=== PATIENT | male | born 1985 | race Caucasian/White ===

== ENCOUNTER 2017-01-31 18:46 | Observation (INO) | payer BC ==
--- NOTE | 2017-01-31 19:11 | Emergency Department Record ---
History of Present Illness - General Chief Complaint: Syncope Stated Complaint: SYNCOPE Time Seen by Provider: 01/31/17 19:00 Source: Patient Mode of Arrival: Wheelchair Limitations: No limitations - History of Present Illness Initial Comments: The patient is here due to feeling that his heart rate was fast at home and possibly passing out. He was taking a nap and got up and then felt like his heart was racing. He then called out to his that he felt his HR was fast, got up to walk to the bathroom and then became very lightheaded and fell, bumping his head on an object and passing out for 30 seconds. When he woke up he was quite lightheaded but denied any CP, SOB, JANESSA, or sweating. The symptoms did resolve in the car ride to the hospital and now he is feeling fine. He denies any CP, SOB, recent illnesses, head pain, neck pain, vomiting or diarrhea. The patient is not taking any new medicines and has no hx of similar issues. MD Complaint: [place] faint, Loss of consciousness Onset/Timin -: Minutes(s) Prodromal Symptoms: Heart racing, Palpitations Description of Event: Post-event confusion Duration of Episode: 1 -: Minutes(s) Injuries Sustained Associated with Event: Head Current Symptoms: None Context: Getting out of bed Treatments Prior to Arrival: None - [place] Coma Scale Eye Response: (4) Open spontaneously Motor Response: (6) Obeys commands Verbal Response: (5) Oriented [place] Total: 15 - Related Data Home Medications Medication Instructions Recorded Confirmed Last Taken Fexofenadine/Pseudoephedrine 1 each PO DAILY 01/31/17 01/31/17 01/31/17 [Laya-D 24 Hour Tablet] Lansoprazole [Prevacid] 15 mg PO DAILY 01/31/17 01/31/17 01/31/17 Allergies Allergy/AdvReac Type Severity Reaction Status Date / Time Sulfa (Sulfonamide Allergy RASH Verified 01/31/17 18:59 Antibiotics) Travel Screening - Travel/Exposure Within Last 30 Days Have you traveled within the last 30 days?: No - Travel/Exposure Within Last Year Have you traveled outside the [place] in the last year?: No - Additonal Travel Details Have you been exposed to anyone with a communicable illness?: No - Travel Symptoms Symptom Screening: None Review of Systems Constitutional: Denies: Chills, Fever Eyes: Denies: Eye discharge ENT: Denies: Congestion Respiratory: Denies: Cough, Dyspnea Past Medical History - SOCIAL HISTORY Smoking Status: Former smoker Alcohol Use: Rare Drug Use: None - RESPIRATORY Hx Respiratory Disorders: Yes Hx Asthma: Yes - CARDIOVASCULAR Hx Cardio Disorders: No - NEURO Hx Neuro Disorders: No - GI Hx GI Disorders: No - Hx Genitourinary Disorders: No - ENDOCRINE Hx Endocrine Disorders: No - MUSCULOSKELETAL Hx Musculoskeletal Disorders: No - PSYCH Hx Psych Problems: No - HEMATOLOGY/ONCOLOGY Hx Hematology/Oncology Disorders: No Family Medical History Any Significant Family History?: No Physical Exam - General General Appearance: Alert, Oriented x3, Cooperative, No acute distress - Head Head exam: Normocephalic. negative: Atraumatic, Normal inspection (There is a very minor abrasion to the R parietal scalp area. There is no swelling or tenderness.) - Eye Eye exam: Normal appearance, PERRL, EOMI - Neck Neck exam: Normal inspection, Full ROM. negative: Meningismus, Tenderness ( There is no Cspine tenderness.) - Respiratory Respiratory exam: Normal lung sounds bilaterally. negative: Respiratory distress - Cardiovascular Cardiovascular Exam: Regular rate, Normal rhythm, Normal heart sounds. negative : Diastolic murmur, Systolic murmur - GI/Abdominal GI/Abdominal exam: Soft, Normal bowel sounds. negative: Tenderness - Extremities Extremities exam: Normal inspection, Full ROM, Normal capillary refill. negative: Tenderness - Neurological Neurological exam: Alert, Normal gait. negative: Abnormal gait, Motor sensory deficit - Psychiatric Psychiatric exam: negative: Anxious, Depressed Course Vital Signs 01/31/17 18:51 Temperature 98.6 F Pulse Rate 79 Respiratory 16 Rate Blood Pressure 117/75 Pulse Ox 98 - Reevaluation(s) Reevaluation #1: The patient is doing very well at this time. He denies any symptoms or pain or lightheadedness. Due to the nature of his complaints I did recommend overnight hospital admission and the patient agrees. I then did discuss the case with Quin TERRY) and she accepts the admission. 01/31/17 20:19 Medical Decision Making - Data Complexity MDM Data: X-Ray Ordered and/or Reviewed, EKG Ordered and/or Reviewed - Lab Data Result diagrams: 01/31/17 18:51 01/31/17 18:51 - EKG Data -: EKG Interpreted by Me EKG: No Acute Changes, Normal EKG - Radiology Data Radiology results: Report reviewed (CXR: Neg) Disposition Disposition: Admit Clinical Impression: Syncope Qualifiers: Syncope type: unspecified Qualified Code(s): R55 - Syncope and collapse Disposition: Still a Patient at [facility] Decision to Admit: Admit from ER Decision to Admit Date: 01/31/17 Decision to Admit Time: 20:20 Accepting Physician: Alycia Time Discussed w/Accepting Physician: 20:21 Condition: (2) Stable Forms: Patient Portal Access Time of Disposition: 20:21
[2017-01-31 19:14] LABS: BASO % 0.5 % (0-6); EOS % 5.3 % (0-6); GRAN % 38.4 % (47-80); HEMATOCRIT 46.9 % (42.0-52.0); LYMPH % 46.5 % (16-45); MEAN CELL VOLUME 86.7 fl (81-97); MEAN CORPUSCULAR HEMOGLOBIN 29.6 pg (27-33); MEAN CORPUSCULAR HGB CONC 34.1 g/dl (32-36); MEAN PLATELET VOLUME 9.5 fl (7.4-10.4); MONO % 9.3 % (0-9); PLATELET COUNT 348 K/uL (130-400); RED BLOOD COUNT 5.41 M/uL (4.40-5.70); RED CELL DISTRIBUTION WIDTH 12.4 % (11.5-14.5)
[2017-01-31 19:26] LABS: ANION GAP 9.9 (7-16); BLOOD UREA NITROGEN 12 mg/dL (9-20); CARBON DIOXIDE 29.1 mmol/L (22-30); CREATINE PHOSPHOKINASE 93 U/L (55-170); CREATININE 1.1 mg/dL (0.66-1.25); EST GLOMERULAR FILTRATION RATE > 60 ml/min; GLUCOSE,RANDOM 75 mg/dL (70-110)
[2017-01-31 19:39] LABS: CKMB 0.4 ug/L (0-6)
[2017-01-31 20:09] LABS: TROPONIN I < 0.012 ng/mL (0.00-0.034)
[2017-02-01 01:02] LABS: CKMB 0.4 ug/L (0-6); TROPONIN I < 0.012 ng/mL (0.00-0.034)
--- NOTE | 2017-02-01 07:24 | History & Physical ---
History of Present Illness - Date of Service Date of Service for History & Physical: 02/01/17 - History of Present Illness Admitting Diagnosis: 1. Acute Syncope, R/O MS. History of Present Illness: 31yo male with CC of syncope. He has a history of asthma. Patient presented to the ED brought by his after having a syncopal episode. He was taking a nap and woke up quickly realizing he was running late to a baseball game. He got up and felt like his heart was racing. He went to the bathroom and and once he started urinating became very lightheaded and fell , bumping his head on an object and passing out for 30 seconds. His caught him and helped lowered him to the ground. He did not have any rhythmic convulsions and was unconscious for about 30 seconds. When he woke up he was quite lightheaded but denied any CP, SOB, JANESSA, or sweating. The symptoms did resolve in the car ride to the hospital. While in the ED, patient had EKG normal sinus rhythm without ST changes. He had a CXR negative for acute process. CBC and CMP were unremarkable. 1st set of CE returned wnl. patient was admitted for further monitoring following syncopal episode. 02/01/17- Patient states he is feeling well today. He denies any headache, chest pain, shortness of breath, weakness, confusion. He says this is the first time he has had a syncopal episode. no family history of sudden cardiac or other cardiac abnormalities. He states he has had some fast heart beats that are intermittent lasting 10 seconds over the past few months but they always seem to resolve. He does not take any medications aside from his ventolin inhaler. He exercises regularly several times a week and does not smoke. pcp: not established Travel Screening - Travel/Exposure Within Last 30 Days Have you traveled within the last 30 days?: No - Travel/Exposure Within Last Year Have you traveled outside the [place] in the last year?: No - Additonal Travel Details Have you been exposed to anyone with a communicable illness?: No - Travel Symptoms Symptom Screening: None Review of Systems Constitutional: Denies: Chills, Fever, Night sweats, Weakness Eyes: Denies: Eye discharge ENT: Denies: Congestion Respiratory: Denies: Cough, Dyspnea Cardiovascular: Reports: Syncope. Denies: Arrhythmia, Chest pain, Dyspnea on exertion, Edema, Murmurs, Palpitations, Paroxysmal nocturnal dyspnea Endocrine: Denies: Fatigue Gastrointestinal: Denies: Constipation, Diarrhea Genitourinary: Denies: Dysuria Musculoskeletal: Denies: Arthralgia, Back pain Skin: Denies: Bruising Neurological: Denies: Abnormal gait, Confusion, Headache, Numbness, Paresthesias , Seizure, Tremors, Vertigo, Weakness Psychiatric: Denies: Anxiety, Depression Hematological/Lymphatic: Denies: Blood Clots Past Medical History - SOCIAL HISTORY Smoking Status: Former smoker Alcohol Use: Occassional Drug Use: None - RESPIRATORY Hx Respiratory Disorders: Yes Hx Asthma: Yes - CARDIOVASCULAR Hx Cardio Disorders: No - NEURO Hx Neuro Disorders: No - GI Hx GI Disorders: No - Hx Genitourinary Disorders: No - ENDOCRINE Hx Endocrine Disorders: No - MUSCULOSKELETAL Hx Musculoskeletal Disorders: No - PSYCH Hx Psych Problems: No - HEMATOLOGY/ONCOLOGY Hx Hematology/Oncology Disorders: No Family Medical History Any Significant Family History?: No H&P Meds/Allergies - Allergies Allergies: Allergies Allergy/AdvReac Type Severity Reaction Status Date / Time Sulfa (Sulfonamide Allergy RASH Verified 01/31/17 18:59 Antibiotics) - Home Medications Home Medications Medication Instructions Recorded Confirmed Last Taken Fexofenadine/Pseudoephedrine 1 each PO DAILY 01/31/17 01/31/17 01/31/17 [Laya-D 24 Hour Tablet] Lansoprazole [Prevacid] 15 mg PO DAILY 01/31/17 01/31/17 01/31/17 - Active Medications Active Medications: Current Medications Non-Formulary Medication (Lansoprazole [Prevacid]) 15 mg PO DAILY LILI Physical Exam - Vital Signs Vital Signs: Vital Signs - Last 24 Hrs Temp Pulse Resp BP Pulse Ox 02/01/17 06:00 97.9 F 68 16 106/57 96 02/01/17 02:07 97.6 F 65 16 133/68 97 01/31/17 22:58 97.7 F 77 16 119/78 96 01/31/17 21:00 69 16 01/31/17 20:59 98.7 F 69 16 124/73 98 - General General Appearance: Alert, Oriented x3, Cooperative, No acute distress Limitations: No limitations - Head Head exam: Normocephalic. negative: Atraumatic, Normal inspection (There is a very minor abrasion to the R parietal scalp area. There is no swelling or tenderness.) - Eye Eye exam: Normal appearance, PERRL, EOMI - Neck Neck exam: Normal inspection, Full ROM. negative: Meningismus, Tenderness ( There is no Cspine tenderness.) - Respiratory Respiratory exam: Normal lung sounds bilaterally. negative: Accessory muscle use, Decreased breath sounds, Respiratory distress, Wheezes - Cardiovascular Cardiovascular Exam: Regular rate, Normal rhythm, Normal heart sounds. negative : Diastolic murmur, Systolic murmur - GI/Abdominal GI/Abdominal exam: Soft, Normal bowel sounds. negative: Tenderness - Extremities Extremities exam: Normal inspection, Full ROM, Normal capillary refill. negative: Tenderness - Neurological Neurological exam: Alert, Normal gait. negative: Abnormal gait, Motor sensory deficit - Psychiatric Psychiatric exam: negative: Anxious, Depressed Results - Labs Result Diagrams: 01/31/17 18:51 02/01/17 07:14 Labs Last 24 Hours: Laboratory Results - last 24 hr 01/31/17 23:30 CK-MB (CK-2) Cancelled - Imaging and Cardiology Chest x-ray Status: Report reviewed (no acute process ) VTE H&P Assessment - Risk for VTE Risk for VTE: No Risk Level: Very Low Risk Assessment Date: 02/01/17 Risk Assessment Time: 11:00 VTE Orders Placed or Will Be Placed: No VTE Reason for No Prophylaxis: Not Indicated Plan - Detailed Diagnosis and Plan (1) Syncope Current Visit: Yes Status: Acute Qualifiers: Syncope type: unspecified Qualified Code(s): R55 - Syncope and collapse Base Code: R55 - SYNCOPE AND COLLAPSE Comment: 02/01/17- Patient back to baseline. based on history suspect vasovagal etiology with syncope occurring while micturating with complete recovery back to baseline. EKG x2 shows no abnormalities suggesting arrythymia or ACS. cardiac monitoring wnl through the night. all three sets of CE returned within normal. CXR was negative for acute process. heart size wnl. Patient is asymptomatic at this time. -spent 10 minutes counseling on vasovagal syncope. -will get him set up [facility] outpatient holter monitor as he reports a few episodes of intermittent fast heart beat over the past few months. admits to drinknig a lot more coffee and not sleepign as much so likely these are PVC's occurring. -will plan to discharge home today. Gave him [facility] new patient packet. (2) DVT prophylaxis Current Visit: Yes Status: Acute Base Code: [id number] - Comment: 02/01/17- patient is very low risk with age -encouraged ambulation (3) Full code status Current Visit: Yes Status: Acute Base Code: Z78.9 - OTHER SPECIFIED HEALTH STATUS Comment: 02/01/17- patient is full code
[2017-02-01 07:34] LABS: ANION GAP 6.7 (7-16); BLOOD UREA NITROGEN 16 mg/dL (9-20); CARBON DIOXIDE 27.3 mmol/L (22-30); CREATININE 1.2 mg/dL (0.66-1.25); EST GLOMERULAR FILTRATION RATE > 60 ml/min; GLUCOSE,RANDOM 106 mg/dL (70-110)
[2017-02-01] MEDS ORDERED: PANTOPRAZOLE SODIUM 40 MG TABLET PO SCH (08:15)
--- NOTE | 2017-02-01 11:13 | Discharge Summary ---
Providers Discharge Summary Date: 02/01/17 Date of admission: 01/31/17 20:30 Expected Date of Discharge: 02/01/17 Attending physician: MALICK BERNAL Primary care physician: TORI VARGAS D.O. Physical Exam - Vital Signs Vital Signs: Vital Signs - Last 24 Hrs Temp Pulse Pulse Resp BP Pulse Ox 02/01/17 09:46 60 16 02/01/17 06:00 97.9 F 68 16 106/57 96 02/01/17 02:07 97.6 F 65 16 133/68 97 01/31/17 22:58 97.7 F 77 16 119/78 96 01/31/17 21:00 69 16 01/31/17 20:59 98.7 F 69 16 124/73 98 - General General Appearance: Alert, Oriented x3, Cooperative, No acute distress Limitations: No limitations - Head Head exam: Normocephalic. negative: Atraumatic, Normal inspection (There is a very minor abrasion to the R parietal scalp area. There is no swelling or tenderness.) - Eye Eye exam: Normal appearance, PERRL, EOMI - Neck Neck exam: Normal inspection, Full ROM. negative: Meningismus, Tenderness ( There is no Cspine tenderness.) - Respiratory Respiratory exam: Normal lung sounds bilaterally. negative: Accessory muscle use, Decreased breath sounds, Respiratory distress, Wheezes - Cardiovascular Cardiovascular Exam: Regular rate, Normal rhythm, Normal heart sounds. negative : Diastolic murmur, Systolic murmur - GI/Abdominal GI/Abdominal exam: Soft, Normal bowel sounds. negative: Tenderness - Extremities Extremities exam: Normal inspection, Full ROM, Normal capillary refill. negative: Tenderness - Neurological Neurological exam: Alert, Normal gait. negative: Abnormal gait, Motor sensory deficit - Psychiatric Psychiatric exam: negative: Anxious, Depressed Hospitalization - Hospitalization Admission Diagnosis: 1. Acute Syncope, R/O GA. - Problem List/Discharge Diagnosis (1) Syncope Current Visit: Yes Status: Acute Discharge Diagnosis: Syncope type: unspecified Qualified Code(s): R55 - Syncope and collapse Base Code: R55 - SYNCOPE AND COLLAPSE Comment: 02/01/17- Patient back to baseline. based on history suspect vasovagal etiology with syncope occurring while micturating with complete recovery back to baseline. EKG x2 shows no abnormalities suggesting arrythymia or ACS. cardiac monitoring wnl through the night. all three sets of CE returned within normal. CXR was negative for acute process. heart size wnl. Patient is asymptomatic at this time. -spent 10 minutes counseling on vasovagal syncope. -will get him set up [facility] outpatient holter monitor as he reports a few episodes of intermittent fast heart beat over the past few months. admits to drinknig a lot more coffee and not sleepign as much so likely these are PVC's occurring. -will plan to discharge home today. Gave him [facility] new patient packet. (2) DVT prophylaxis Current Visit: Yes Status: Acute Base Code: [id number] - Comment: 02/01/17- patient is very low risk with age -encouraged ambulation (3) Full code status Current Visit: Yes Status: Acute Base Code: Z78.9 - OTHER SPECIFIED HEALTH STATUS Comment: 02/01/17- patient is full code - Hospitalization Course Disposition: Home, Self-Care Hospital Course: 31yo male with CC of syncope. He has a history of asthma. Patient presented to the ED brought by his after having a syncopal episode. He was taking a nap and woke up quickly realizing he was running late to a baseball game. He got up and felt like his heart was racing. He went to the bathroom and and once he started urinating became very lightheaded and fell , bumping his head on an object and passing out for 30 seconds. His caught him and helped lowered him to the ground. He did not have any rhythmic convulsions and was unconscious for about 30 seconds. When he woke up he was quite lightheaded but denied any CP, SOB, JANESSA, or sweating. The symptoms did resolve in the car ride to the hospital. While in the ED, patient had EKG normal sinus rhythm without ST changes. He had a CXR negative for acute process. CBC and CMP were unremarkable. 1st set of CE returned wnl. patient was admitted for further monitoring following syncopal episode. 02/01/17- Patient states he is feeling well today. He denies any headache, chest pain, shortness of breath, weakness, confusion. He says this is the first time he has had a syncopal episode. no family history of sudden cardiac or other cardiac abnormalities. He states he has had some fast heart beats that are intermittent lasting 10 seconds over the past few months but they always seem to resolve. He does not take any medications aside from his ventolin inhaler. He exercises regularly several times a week and does not smoke. Abnormal Labs: Abnormal Lab Results 02/01/17 Range/Units 07:14 Anion Gap 6.7 L (7-16) Condition at Discharge: (2) Stable Discharge Medications - Discharge Medications Prescriptions: Albuterol Sulfate [Ventolin Hfa] 1 - 2 puff IH .EVERY 4-6 HOURS PRN #1 inhaler PRN Reason: Difficulty In Breathing Home Medications: Ambulatory Orders Fexofenadine/Pseudoephedrine [Laya-D 24 Hour Tablet] 1 each PO DAILY [Last Taken 01/31/17] Lansoprazole [Prevacid] 15 mg PO DAILY 01/31/17 [Last Taken 01/31/17] Albuterol Sulfate [Ventolin Hfa] 1 - 2 puff IH .EVERY 4-6 HOURS PRN #1 inhaler 02/01/17 [Last Taken Unknown] Discharge Plan - Discharge Instructions Activity at Discharge: Resume Usual Activities As Tolerated Diet at Discharge: Regular Diet Additional Instructions: Return to usual activities as tolerating Holter monitor will be placed prior to discharge Please be sure to make a follow up appointment with a primary care provider and to call with any questions Return to ED for any new or worsening symptoms
--- NOTE | 2017-02-02 10:50 | RADIOLOGY REPORT ---
EXAM: CHEST AP or PA ONLY HISTORY: PATIENT COMPLAINS OF INCREASED HEART RATE AND PALPITATIONS. TECHNIQUE: AP portable view of the chest is provided without comparison examinations. FINDINGS: Cardiomediastinal silhouette is within normal limits for size and contour. Sherry appear unremarkable. There is no radiographic evidence of a focal infiltrate, pleural effusion, or pneumothorax. IMPRESSION: NO RADIOGRAPHIC EVIDENCE OF AN ACUTE INTRATHORACIC PROCESS. JOB NUMBER: [id number] MTDD
--- NOTE | 2017-02-07 16:08 | Holter Monitor Report ---
DATE OF TEST: 02/07/17 Mr. Jerez is 31 years old wearing a 24-hour Holter monitor on 02/01/2017 for syncope. There were a total of 109,935 heart beats were recorded. The average heart rate was 77 beats per minute and sinus rhythm. The minimum was 49 beats per minute and the maximum was 125 beats per minute. There were no significant pauses recorded. There was no ventricular or atrial arrhythmia. FINAL IMPRESSION: NORMAL HOLTER MONITOR. JOB NUMBER: [id number] MTDD
== END 2017-02-01 12:51 | disposition home or self-care (01) ==
LOC: ER 18:46 → MEDSURG 20:30
PROVIDERS: ADMIT Family Medicine; ATTEND Family Medicine
DX: R55 Syncope and collapse (principal); J45.909 Unspecified asthma, uncomplicated
CPT/HCPCS: 99285 ×2; 82550; 85025; 82553 ×2; 84484 ×2; 80048 ×2; 71010; 93005 ×2; 93225; 93226; 93010 ×2; G0378 ×2; 99219; 99223

== ENCOUNTER 2017-07-21 02:12 | Emergency (ER) | payer BC ==
--- NOTE | 2017-07-21 02:29 | Emergency Department Record ---
History of Present Illness - General Chief complaint: Pain Stated complaint: HAND INJURY Time Seen by Provider: 07/21/17 02:24 Source: Patient Mode of Arrival: Ambulatory Limitations: No limitations - History of Present Illness Initial comments: 32 yo male presents to ED for evaluation of right hand injury after punching a cabinet this morning. Patient reports immediate swelling and pain symptoms over the MCP/Phalangeal joints of the right hand. Patient reports that he is still able to flex/extend the fingers, but is limited by swelling/pain. Patient denies other injury on examination. Patient denies health problems at his baseline. Patient denies fight-bite injury on examination. Patient did take Aleve prior to arrival. MD Complaint: Extremity pain Onset/Timin -: Minutes(s) Location: Right, Hand Severity scale (1-10): 3 Quality: Aching Consistency: Constant Improves with: Nothing Worsens with: Palpation Associated Symptoms: Denies other symptoms - Related Data Previous Rx's Medication Instructions Recorded Albuterol Sulfate [Ventolin Hfa] 1 - 2 puff IH .EVERY 4-6 HOURS PRN 02/01/17 #1 inhaler Allergies Allergy/AdvReac Type Severity Reaction Status Date / Time Sulfa (Sulfonamide Allergy RASH Verified 01/31/17 18:59 Antibiotics) Travel Screening - Travel/Exposure Within Last 30 Days Have you traveled within the last 30 days?: No - Travel Symptoms Symptom Screening: None Review of Systems Constitutional: Denies: Chills, Fever, Malaise Eyes: Denies: Eye discharge, Eye pain ENT: Denies: Congestion, Ear pain, Epistaxis Respiratory: Denies: Cough, Dyspnea Cardiovascular: Denies: Chest pain, Dyspnea on exertion Endocrine: Denies: Fatigue, Heat or cold intolerance Gastrointestinal: Denies: Abdominal pain, Nausea, Vomiting Genitourinary: Denies: Incontinence, Retention Musculoskeletal: Reports: Arthralgia, Joint swelling. Denies: Back pain, Gout Skin: Reports: Bruising Neurological: Denies: Abnormal gait, Confusion, Headache, Seizure Psychiatric: Denies: Anxiety Hematological/Lymphatic: Denies: Anemia, Blood Clots Past Medical History - SOCIAL HISTORY Smoking Status: Current some day smoker - RESPIRATORY Hx Respiratory Disorders: Yes Hx Asthma: Yes - CARDIOVASCULAR Hx Cardio Disorders: No - NEURO Hx Neuro Disorders: No - GI Hx GI Disorders: No - Hx Genitourinary Disorders: No - ENDOCRINE Hx Endocrine Disorders: No - MUSCULOSKELETAL Hx Musculoskeletal Disorders: No - PSYCH Hx Psych Problems: No - HEMATOLOGY/ONCOLOGY Hx Hematology/Oncology Disorders: No Family Medical History Any Significant Family History?: Yes Family Hx Comment (NOT TO BE USED IN PLACE OF ITEMS BELOW): Grandmother has brain tumor-not cancer Hx Cancer: Grandparents Physical Exam - General General Appearance: Alert, Oriented x3, Cooperative, Mild distress Limitations: No limitations - Head Head exam: Atraumatic, Normocephalic, Normal inspection Head exam detail: negative: Abrasion, Contusion, Palacios's sign, General tenderness, Hematoma, Laceration - Eye Eye exam: Normal appearance. negative: Conjunctival injection, Periorbital swelling, Periorbital tenderness, Scleral icterus - ENT Ear exam: negative: Auricular hematoma, Auricular trauma Nasal Exam: negative: Active bleeding, Discharge, Dried blood, Foreign body Mouth exam: negative: Drooling, Laceration, Muffled voice, Tongue elevation - Neck Neck exam: Normal inspection. negative: Meningismus, Tenderness - Respiratory Respiratory exam: Normal lung sounds bilaterally. negative: Rales, Respiratory distress, Rhonchi, Stridor - Cardiovascular Cardiovascular Exam: Regular rate, Normal rhythm, Normal heart sounds Peripheral Pulses: 3+: Radial (R) - GI/Abdominal GI/Abdominal exam: Soft. negative: Rebound, Rigid, Tenderness - Rectal Rectal exam: Deferred - exam: Deferred - Extremities Extremities exam: Tenderness, Other (STS and abrasions over the MCP/phalangeal joints of the right hand, ROM intact but limited by STS.). negative: Calf tenderness, Pedal edema - Back Back exam: Denies: CVA tenderness (R), CVA tenderness (L) - Neurological Neurological exam: Alert, Normal gait, Oriented X3 - Psychiatric Psychiatric exam: Normal affect, Normal mood - Skin Skin exam: Abrasion, Normal color Type of lesion: abrasion Distribution of rash: RUE, LUE Course Vital Signs 07/21/17 02:17 Temperature 98.1 F Pulse Rate [ 97 H Pulse Ox Probe] Respiratory 20 Rate Blood Pressure 139/95 [Left Arm] Pulse Ox 98 - Reevaluation(s) Reevaluation #1: 07/21/17 02:36 Right Hand: Negative for fracture Patient was updated on radiology results, and appears stable for discharge with continued symptomatic care at home. Disposition Disposition: Discharge Clinical Impression: Contusion of hand, right Qualifiers: Encounter type: initial encounter Qualified Code(s): S60.221A - Contusion of right hand, initial encounter Disposition: Home, Self-Care Condition: (2) Stable Instructions: Contusion in Adults (ED) Additional Instructions: Return to ED if your symptoms worsen or if you have any concerns. Ice/Ibuprofen as needed for pain symptoms. Follow-up with your family doctor in 1 week as directed. Forms: Patient Portal Access Time of Disposition: 02:29 Quality - Quality Measures Quality Measures: N/A - Blood Pressure Screening Does Patient Have Any of the Following: No Blood Pressure Classification: Hypertensive Reading Systolic Measurement: 139 Diastolic Measurement: 95 Screening for High Blood Pressure: < First Hypertensive BP, F/U Documented > [ G8950] First Hypertensive Follow-up Interventions: Referral to alternative/primary care provider.
--- NOTE | 2017-07-21 20:44 | RADIOLOGY REPORT ---
EXAM: HAND, RIGHT 3 VIEWS HISTORY: INJURY PUNCHING A DOOR. TECHNIQUE: Three views. COMPARISON: None. ENCOUNTER: Initial. FINDINGS: No bone or joint abnormality identified. No fracture seen. IMPRESSION: UNREMARKABLE RIGHT HAND. JOB NUMBER: [id number] MTDD
== END 2017-07-21 02:52 | disposition home or self-care (01) ==
LOC: ER 02:12
DX: S60.221A Contusion of right hand, initial encounter (principal); W22.8XXA Striking against or struck by other objects, initial encounter
CPT/HCPCS: 99283

== ENCOUNTER 2019-03-30 16:19 | Emergency (ER) | payer BC ==
--- NOTE | 2019-03-30 16:46 | Emergency Department Record ---
History of Present Illness - General Chief Complaint: Wound, puncture Stated Complaint: LT INDEX NAIL THROUGH FINGER - History of Present Illness Initial Commments: puncture, patient walked out just prior to my going in to see him and he told the MA he didn't want the copay of an ED and he thought this was a ready care and his just yelled at him being here. - Related Data Hx Tetanus Toxoid Vaccination: Yes Year of Tetanus Vaccination: over five years less than ten Previous Rx's Medication Instructions Recorded Albuterol Sulfate [Ventolin Hfa] 1 - 2 puff IH .EVERY 4-6 HOURS PRN 02/01/17 #1 inhaler Allergies Allergy/AdvReac Type Severity Reaction Status Date / Time Sulfa (Sulfonamide Allergy RASH Verified 01/31/17 18:59 Antibiotics) Past Medical History - SOCIAL HISTORY Smoking Status: Current some day smoker - RESPIRATORY Hx Respiratory Disorders: Yes Hx Asthma: Yes - CARDIOVASCULAR Hx Cardio Disorders: No - NEURO Hx Neuro Disorders: No - GI Hx GI Disorders: No - Hx Genitourinary Disorders: No - ENDOCRINE Hx Endocrine Disorders: No - MUSCULOSKELETAL Hx Musculoskeletal Disorders: No - PSYCH Hx Psych Problems: No - HEMATOLOGY/ONCOLOGY Hx Hematology/Oncology Disorders: No Family Medical History Family Hx Comment (NOT TO BE USED IN PLACE OF ITEMS BELOW): Grandmother has brain tumor-not cancer Hx Cancer: Grandparents Course Vital Signs 03/30/19 16:27 Temperature 98.1 F Pulse Rate [ 109 H Pulse Ox Probe] Respiratory 20 Rate Blood Pressure 122/86 [Left Arm] Pulse Ox 95 Disposition Disposition: Left w/o service/seen Condition: (1) Good Forms: Patient Portal Access Quality - Quality Measures Quality Measures: N/A - Blood Pressure Screening Does Patient Have Any of the Following: No Blood Pressure Classification: Pre-Hypertensive BP Reading Systolic Measurement: 122 Diastolic Measurement: 86 Screening for High Blood Pressure: < Pre-Hypertensive BP, F/U Documented > [G8950] Pre-Hypertensive Follow-up Interventions: Referral to alternative/primary care provider.
== END 2019-03-30 16:45 | disposition left against medical advice (07) ==
LOC: ER 16:19
DX: S61.339A Puncture wound without foreign body of unspecified finger with damage to nail, initial encounter (principal); F17.210 Nicotine dependence, cigarettes, uncomplicated
CPT/HCPCS: 99281